=== PATIENT | male | born 1985 | race Caucasian/White ===

== ENCOUNTER 2016-10-23 18:13 | Emergency (ER) | payer BC, SELFPAY ==
[2016-10-23] MEDS ORDERED: Adacel (T-DAP) 0.5 ML VIAL ONE (18:29)
[2016-10-23] MEDS ORDERED: Lidocaine 1% 20 ML MDV ONE (18:32)
[2016-10-23] MEDS ORDERED: HYDROcodone/Acetaminophen 5/325 mg Tablet ONE (19:02)
[2016-10-23] MEDS ORDERED: Bacitracin Zinc 1 Packet ONE (19:03)
== END 2016-10-23 19:19 | disposition home or self-care (01) ==
LOC: BURERS 18:13
DX: S61.011A Laceration without foreign body of right thumb without damage to nail, initial encounter (principal); Z23 Encounter for immunization; F17.210 Nicotine dependence, cigarettes, uncomplicated; F17.220 Nicotine dependence, chewing tobacco, uncomplicated; W27.8XXA Contact with other nonpowered hand tool, initial encounter; Y92.009 Unspecified place in unspecified non-institutional (private) residence as the place of occurrence of the external cause
CPT/HCPCS: 12001; 90471; 90715; J2001

== ENCOUNTER 2018-07-18 21:48 | Emergency (ER) | payer SELFPAY ==
[2018-07-18] MEDS ORDERED: Ketorolac Tromethamine 30 MG/ML VIAL ONE (22:05)
[2018-07-18 22:16] LABS: Hemoglobin 14.5 g/dL (14.0-18.0); Mean Corpuscular HGB CONC 34.2 g/dL (32.0-36.0); Mean Corpuscular Hemoglobin 30.5 pg (27.0-31.0); Mean Platelet Volume 7.2 fL (7.4-10.4); Platelet Count 229 thou/uL (130-400); RBC Distribution Width 12.7 % (11.5-14.5); Red Blood Cell (RBC) Count 4.75 mill/uL (4.70-6.10); White Blood Cell (WBC) Count 20.1 thou/uL (4.8-10.8)
[2018-07-18 22:23] LABS: Anion Gap 14 mmol/L (10-20); BUN (Urea Nitrogen) 16 mg/dL (8.9-20.6); Calc. Creatinine Clearance 0 mL/min (70-130); Calcium 9.8 mg/dL (7.8-10.44); Carbon Dioxide 23 mmol/L (22-29); Chloride 105 mmol/L (98-107); Estimated GFR-MDRD Greater than 90; Glucose 105 mg/dL (70-105); Sodium 138 mmol/L (136-145)
[2018-07-18 22:33] LABS: Band 1 % (5-11); Eosinophils 1 % (0-10); Lymphocytes 10 % (21-51); MDiff Complete? YES; Monocytes 9 % (0-10); Neutrophil 76 % (42-75); Platelet Morphology Comment Appears Adequate; RBC Morphology Normal; Reactive Lymphocytes 2 % (0-10)
--- NOTE | 2018-07-18 23:21 | CT ---
CT NECK WITH CONTRAST SOFT TISSUE 07/18/18 HISTORY: Throat pain. Negative strep test. COMPARISON: None. FINDINGS: Evaluation of the palatine tonsils is limited to the artifact from the teeth. There is, however, a mu ltiloculated right palatine tonsillar abscess measuring approximately 2.5 x 2.4 x at least 3.5 cm (tr ansverse x AP x CC). There is mass effect upon and narrowing of the pharynx. The left palatine tonsil does not appear to have associated edema nor abnormal enhancement. Edema. No retropharyngeal abscess. No extension of infection to the mediastinum. Multiple bilateral cervical adenopathy is present. IMPRESSION: 1. Large right palatine tonsillar abscess with some mass effect upon the pharynx. 2. Reactive cervical adenopathy. POS: [facility]
== END 2018-07-18 23:12 | disposition home or self-care (01) ==
LOC: BURERS 21:48
DX: J36 Peritonsillar abscess (principal); F17.220 Nicotine dependence, chewing tobacco, uncomplicated
CPT/HCPCS: 42700; 70491; 80048; 85025; 87081; 87430; 96374; J1885